=== PATIENT | male | born 1955 | race Caucasian/White ===

== ENCOUNTER 2016-07-12 12:29 | Emergency (ER) | payer BC ==
[2016-07-12 12:43] VITALS: BP 140/78
--- NOTE | 2016-07-12 12:45 | EDM.PDOC ---
ED HPI GENERAL MEDICAL PROBLEM - General Chief Complaint: ENT Problem Stated Complaint: DIZZY, PALE, REAL SWEATY Time Seen by Provider: 07/12/16 12:44 Source of Information: Reports: Patient, Old Records, RN, RN Notes Reviewed History Limitations: Reports: No Limitations - History of Present Illness INITIAL COMMENTS - FREE TEXT/NARRATIVE: Pt reports that he woke to sudden onset of "room spin" dizziness and nausea with diaphoresis. Pt called his PCP and was told to go to the ER. He denies CP, SOB, headache, palpitations, edema, or weakness. Admits to sinus congestion and left ear pressure. Onset: Today, Sudden Duration: Waxing/Waning Quality: Reports: Pressure Severity: Moderate Improves with: Reports: Immobilization Worsens with: Reports: Movement Associated Symptoms: Reports: No Other Symptoms Left Ear Pain Score (Numeric/FACES): 3 - Related Data Allergies Allergy/AdvReac Type Severity Reaction Status Date / Time aspirin Allergy UNKNOWN Verified 07/12/16 12:43 codeine Allergy UNKNOWN Verified 07/12/16 12:43 Penicillins Allergy UNKNOWN Verified 07/12/16 12:43 Home Meds: Home Meds Simvastatin [Simvastatin] 20 mg PO BEDTIME 07/12/16 [History] Past Medical History HEENT History: Reports: Allergic Rhinitis Cardiovascular History: Reports: High Cholesterol Musculoskeletal History: Reports: Neck Pain, Chronic Neurological History: Reports: Neuropathy, Peripheral (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 ED EXAM, ENT - Physical Exam Exam: See Below Exam Limited By: No Limitations General Appearance: Alert, WD/WN, No Apparent Distress Eye Exam: Bilateral Eye: EOMI (left lateral gaze nystagmus), Normal Fundi, Nystagmus, PERRL Ears: Normal External Exam, Normal Canal, TM Bulging (left), TM Dullness (left) , TM Erythema, TM Fluid (left) Nose: No Blood, Nasal Discharge (mild, clear-yellowish), Injected Turbinates, Other (inflammed bluish, boggy nasal mucosa) Mouth/Throat: Normal Inspection, Normal Gums, Normal Lips, Normal Oropharynx, Normal Teeth Head: Atraumatic, Normocephalic Neck: Normal Inspection, Supple, Non-Tender, Full Range of Motion. No: Carotid Bruit, Lymphadenopathy (L), Lymphadenopathy (R) Respiratory/Chest: No Respiratory Distress, Lungs Clear, Normal Breath Sounds, No Accessory Muscle Use, Chest Non-Tender Cardiovascular: Normal Peripheral Pulses, Regular Rate, Rhythm, No Edema, No Gallop, No JVD, No Murmur, No Rub GI/Abdominal: Normal Bowel Sounds, Soft, Non-Tender, No Organomegaly, No Distention, No Abnormal Bruit Back: Normal Inspection Extremities: Normal Inspection, Normal Range of Motion, Non-Tender, No Pedal Edema, Normal Capillary Refill Neurological: Alert, Oriented, Normal Cognition, Normal Gait, No Motor/Sensory Deficits, Other (reproducible vertigo) Psychiatric: Normal Affect, Normal Mood Skin: Warm, Dry, Intact, Normal Color, No Rash Course - Vital Signs Last Recorded V/S: Last Vital Signs Temp 35.8 C 07/12/16 12:35 Pulse 73 07/12/16 12:35 Resp 16 07/12/16 12:35 BP 140/78 07/12/16 12:35 Pulse Ox 97 07/12/16 12:35 - Orders/Labs/Meds Meds: Medications Discontinued Medications Generic Name Dose Route Start Last Admin Trade Name Kevinq PRN Reason Stop Dose Admin Ciprofloxacin 500 mg 07/12/16 14:04 07/12/16 14:09 Ciprofloxacin Hcl PO 07/12/16 14:05 500 mg ONETIME ONE Administration Dexamethasone 20 mg 07/12/16 13:06 07/12/16 13:18 Dexamethasone IVPUSH 07/12/16 13:07 20 mg ONETIME ONE Administration Diazepam 5 mg 07/12/16 13:06 07/12/16 13:17 Valium IVPUSH 07/12/16 13:07 5 mg ONETIME ONE Administration Sodium Chloride 1,000 mls @ 999 mls/hr 07/12/16 13:06 07/12/16 13:11 Normal Saline IV 07/12/16 14:06 999 mls/hr .BOLUS ONE Administration Ondansetron HCl 4 mg 07/12/16 13:19 07/12/16 13:25 Zofran IV 07/12/16 13:20 4 mg ONETIME ONE Administration - Re-Assessments/Exams Free Text/Narrative Re-Assessment/Exam: 07/17/16 09:35 I explained the exam findings, working diagnosis, and any potential or additionally considered diagnoses, treatment/disposition plan, self/home care instructions, rational for the diagnosis/treatment plan/disposition plan, anticipated course of illness, and follow up instructions to the pt and/or pts family or guardian. The pt and/or pts family or guardian acknowledges understanding of the above explanation(s), and of the signs and symptoms which should prompt the return of the pt to the ER should those or any other concerning symptoms develop. 07/17/16 09:35 Departure - Departure Time of Disposition: 14:15 Disposition: Home, Self-Care 01 Condition: fair Clinical Impression: Labyrinthine dysfunction of left ear, Vertigo Otitis media Qualifiers: Otitis media type: suppurative Chronicity: acute Laterality: left Recurrence: recurrent Spontaneous tympanic membrane rupture: without spontaneous rupture Qualified Code(s): H66.005 - Acute suppurative otitis media without spontaneous rupture of ear drum, recurrent, left ear - Discharge Information Instructions: Otitis Media, Adult, Labyrinthitis, [id number], Vertigo Referrals: Pravin Espinosa MD [Primary Care Provider] - Forms: ED Department Discharge Additional Instructions: Rx: Prednisone 20mg Rx: Meclizine 25mg Rx: Cipro 500mg May use over the counter nasal/sinus decongestant medication for the next week, or until symptoms of dizziness and plugged ear resolve. Do not drive or operate equipment until the vertigo (dizziness) has completely resolved. Follow up in clinic for recheck next week. Return to ER if worse at any time.
[2016-07-12] MEDS ORDERED: Dexamethasone 4 MG/ML SDV IVPUSH ONE (13:06)
[2016-07-12] MEDS ORDERED: Sodium Chloride 0.9% 1,000 ML IV ONE (13:06)
[2016-07-12] MEDS ORDERED: Ondansetron 4 MG/2 ML SDV IV ONE (13:19)
[2016-07-12] MEDS ORDERED: Ciprofloxacin 500 MG Tab PO ONE (14:04)
== END 2016-07-12 14:41 | disposition home or self-care (01) ==
LOC: DL.ED 12:29
DX: H83.2X2 Labyrinthine dysfunction, left ear (principal); H66.005 Acute suppurative otitis media without spontaneous rupture of ear drum, recurrent, left ear; Z88.5 Allergy status to narcotic agent; Z88.0 Allergy status to penicillin; Z88.8 Allergy status to other drugs, medicaments and biological substances; E78.00 Pure hypercholesterolemia, unspecified; Z87.891 Personal history of nicotine dependence
CPT/HCPCS: 96361; 96374; 96375; 99284; A9270; J1100; J2405; J3360; J7030